=== PATIENT | female | born 1960 | race Caucasian/White ===

== ENCOUNTER 2016-05-20 11:19 | Emergency (ER) | payer MEDICAID ==
[~2016-05-20] VITALS: Ht 172.7 cm; Wt 88.5 kg
[~2016-05-20 11:19] MED LIST: ALBMDI INH; CALC-112 PO; CARI350T27 PO; EST1 PO; GABA-531 PO; IBUP-1480 PO; IMI50 PO; LEVO75TA7 PO; MOME13HF2 INH; NEU300 PO; OMEG500C3 PO; OXYB10TA4 PO; PRO40 PO; SOM350 PO; VITD2000 PO
[2016-05-20 11:38] VITALS: BP 124/97; PULSE 89; RESP 16; TEMP 97.1; O2SAT 99
--- NOTE | 2016-05-20 12:00 | NUR ---
PLACED IN BED #3 AND REPORT GIVEN TO JOHN
--- NOTE | 2016-05-20 12:40 | NUR ---
ER at bedside examining patient.
--- NOTE | 2016-05-20 12:42 | NUR ---
Visual rectal exam performed by Dr. Anna with female RN (self) at bedside during procedure. Patient tolerated well. No active bleeding. Visable external hemorrhoid noted.
--- NOTE | 2016-05-20 12:43 | NUR ---
pt was sitting on toilet,wiped out a clot from rectum this morning. has hx of hemorriod.
[2016-05-20 13:54] VITALS: BP 124/78; PULSE 76; RESP 16; O2SAT 97
--- NOTE | 2016-05-20 13:55 | NUR ---
Patient given written and verbal discharge instructions and verbalizes understanding. ER MD discussed with patient the results and treatment provided.Patient in stable condition. ID arm band removed. Patient educated on pain management and to follow up with PMD. Pain Scale [0]. Opportunity for questions provided and answered.
== END 2016-05-20 13:54 | disposition home or self-care (01) ==
LOC: SED 11:19
DX: K64.4 Residual hemorrhoidal skin tags (principal); J45.909 Unspecified asthma, uncomplicated; Z88.1 Allergy status to other antibiotic agents; Z86.79 Personal history of other diseases of the circulatory system; Z79.899 Other long term (current) drug therapy
CPT/HCPCS: 99281

== ENCOUNTER 2016-11-19 11:49 | Emergency (ER) | payer MEDICAID ==
[~2016-11-19] VITALS: Ht 170.2 cm; Wt 99.8 kg
[~2016-11-19 11:49] MED LIST changes: -CARI350T27 PO; -GABA-531 PO; -IBUP-1480 PO
[2016-11-19 12:00] VITALS: BP_SYST 151
[2016-11-19 14:33] LABS: BASOPHILS % (AUTO) 0.7 % (0.0-2.0); EOSINOPHILS # (AUTO) 0.1 K/uL (0.0-0.4); EOSINOPHILS % (AUTO) 2.1 % (0.0-4.0); HEMATOCRIT 38.3 % (36-48); HEMOGLOBIN 12.7 g/dL (12.0-16.0); LYMPHOCYTES # (AUTO) 2.1 K/uL (1.0-5.5); LYMPHOCYTES % (AUTO) 30.9 % (20.5-51.5); MEAN CORPUSCULAR HEMOGLOBIN 28 pg (27-31); MEAN CORPUSCULAR HGB CONC 33 % (32-36); MEAN CORPUSCULAR VOLUME 84 fL (79.0-98.0); MONOCYTES # (AUTO) 0.4 K/uL (0.0-1.0); MONOCYTES % (AUTO) 6.4 % (1.7-9.3); NEUTROPHILS # (AUTO) 4.1 K/uL (1.8-7.7); NEUTROPHILS % (AUTO) 59.9 % (40.0-70.0); PLATELET COUNT (AUTO) 241 K/uL (130-430); RED BLOOD CELL COUNT(AUTO) 4.57 MIL/uL (4.2-6.2); RED CELL DISTRIBUTION WIDTH 12.9 % (9.0-15.0); WHITE BLOOD COUNT (AUTO) 6.7 K/uL (4.8-10.8)
[2016-11-19 14:34] LABS: BILIRUBIN,URINE NEGATIVE (NEGATIVE); CLARITY/URINE SL HAZY (CLEAR); COLOR,URINE YELLOW (YELLOW); GLUCOSE,URINE NEGATIVE (NEGATIVE); KETONES,URINE NEGATIVE (NEGATIVE); LEUKOCYTE ESTERASE ,URINE 1+ (NEGATIVE); NITRITE, URINE POSITIVE (NEGATIVE); PH,URINE 5.5 (5.0-8.0); PROTEIN URINE NEGATIVE (NEGATIVE); UROBILINOGEN,URINE 0.2 (0.2-1.0)
[2016-11-19 14:36] LABS: BLOOD, URINE TRACE (NEGATIVE)
[2016-11-19 14:36] LABS: CALCIUM 9.2 mg/dL (8.4-11.0); CREATININE 0.97 mg/dL (0.55-1.30); POTASSIUM 4.1 mmol/L (3.5-5.1)
[2016-11-19 14:40] LABS: ALBUMIN 3.8 g/dL (3.4-4.8); INR 0.9 (0.8-1.2); PROTHROMBIN TIME 10.2 SECS (9.5-12.5); TOTAL BILIRUBIN 0.5 mg/dL (0.0-1.0); TOTAL PROTEIN, SERUM 7.7 g/dL (6.4-8.3)
[2016-11-19 14:51] LABS: BACTERIA,URINE MANY /HPF (None Seen); RBC,URINE 0-3 /HPF (0-3)
[2016-11-19 16:35] VITALS: BP_SYST 116
== END 2016-11-19 16:35 | disposition home or self-care (01) ==
LOC: SED 11:49
DX: I87.2 Venous insufficiency (chronic) (peripheral) (principal); R74.8 Abnormal levels of other serum enzymes; N39.0 Urinary tract infection, site not specified; J45.909 Unspecified asthma, uncomplicated; E07.9 Disorder of thyroid, unspecified; M19.90 Unspecified osteoarthritis, unspecified site; Z88.1 Allergy status to other antibiotic agents; Z79.899 Other long term (current) drug therapy; Z83.3 Family history of diabetes mellitus
CPT/HCPCS: 36415; 71010; 80053; 81000-TC; 85025; 85379; 85610-TC; 85730-TC; 87086; 87186-TC; 93005; 93970; 99285

== ENCOUNTER 2017-01-25 11:52 | Emergency (ER) | payer MEDICAID ==
[~2017-01-25] VITALS: Ht 172.7 cm; Wt 99.8 kg
[2017-01-25 11:52] VITALS: BP_SYST 143
[2017-01-25] MEDS ORDERED: ALBUTEROL SULFATE 0.083% 2.5 MG/3 ML VIAL.NEB INH ONE ×2 (12:15→14:25)
[2017-01-25] MEDS ORDERED: IPRATROPIUM BROM 0.5 MG/2.5 ML VIAL.NEB (ATROVENT) INH ONE ×2 (12:15→14:26)
[2017-01-25 12:28] LABS: BASOPHILS % (AUTO) 0.6 % (0.0-2.0); EOSINOPHILS # (AUTO) 0.1 K/uL (0.0-0.4); EOSINOPHILS % (AUTO) 1.3 % (0.0-4.0); HEMOGLOBIN 12.9 g/dL (12.0-16.0); LYMPHOCYTES # (AUTO) 2.3 K/uL (1.0-5.5); MEAN CORPUSCULAR HEMOGLOBIN 28 pg (27-31); MEAN CORPUSCULAR HGB CONC 33 % (32-36); MEAN CORPUSCULAR VOLUME 84 fL (79.0-98.0); MONOCYTES # (AUTO) 0.4 K/uL (0.0-1.0); MONOCYTES % (AUTO) 5.3 % (1.7-9.3); NEUTROPHILS # (AUTO) 4.1 K/uL (1.8-7.7); NEUTROPHILS % (AUTO) 59.8 % (40.0-70.0); PLATELET COUNT (AUTO) 218 K/uL (130-430); RED BLOOD CELL COUNT(AUTO) 4.62 MIL/uL (4.2-6.2); RED CELL DISTRIBUTION WIDTH 12.8 % (9.0-15.0); WHITE BLOOD COUNT (AUTO) 6.9 K/uL (4.8-10.8)
[2017-01-25 12:36] LABS: CREATININE 0.95 mg/dL (0.55-1.30); POTASSIUM 4.1 mmol/L (3.5-5.1)
[2017-01-25 12:42] LABS: ALBUMIN 3.5 g/dL (3.4-4.8); TOTAL BILIRUBIN 0.9 mg/dL (0.0-1.0)
[2017-01-25] MEDS ORDERED: MECLIZINE HCL 25 MG TABLET (ANITVERT) PO ONE (13:00)
[2017-01-25] MEDS ORDERED: DIPHENOXYLATE HCL/ATROP SULF 2.5 MG TAB PO ONE (13:00)
[2017-01-25] MEDS ORDERED: NACL 0.9% 1,000 ML IV ONE (13:15)
[2017-01-25] MEDS ORDERED: HYDROcodone/ACETAMIN 10-325 MG TAB PO ONE (15:45)
[2017-01-25 16:00] VITALS: BP_SYST 146
== END 2017-01-25 16:00 | disposition home or self-care (01) ==
LOC: SED 11:52
DX: M25.561 Pain in right knee (principal); R42 Dizziness and giddiness; R19.7 Diarrhea, unspecified; J45.909 Unspecified asthma, uncomplicated; K21.9 Gastro-esophageal reflux disease without esophagitis; E03.9 Hypothyroidism, unspecified; Z90.710 Acquired absence of both cervix and uterus; Z88.1 Allergy status to other antibiotic agents; Z79.899 Other long term (current) drug therapy; Z86.79 Personal history of other diseases of the circulatory system; W01.0XXA Fall on same level from slipping, tripping and stumbling without subsequent striking against object, initial encounter; Y93.89 Activity, other specified; Y92.89 Other specified places as the place of occurrence of the external cause; Y99.8 Other external cause status
CPT/HCPCS: 36415; 70450; 71010; 73590; 80053; 83880; 84484; 85025; 93005; 96360; 99285; J7030; J8597

== ENCOUNTER 2017-04-30 16:21 | Emergency (ER) | payer MEDICAID ==
[~2017-04-30] VITALS: Ht 172.7 cm; Wt 95.3 kg
[2017-04-30 16:25] VITALS: BP_SYST 151
[2017-04-30] MEDS: KETOROLAC TROMETHAMINE 60 MG/2 ML VIAL IM ONE (17:51)
[2017-04-30 18:04] VITALS: BP_SYST 143
== END 2017-04-30 18:08 | disposition home or self-care (01) ==
LOC: SED 16:21
DX: M25.511 Pain in right shoulder (principal); K21.9 Gastro-esophageal reflux disease without esophagitis; E03.9 Hypothyroidism, unspecified; J45.909 Unspecified asthma, uncomplicated; Z86.79 Personal history of other diseases of the circulatory system; Z88.1 Allergy status to other antibiotic agents; Z79.899 Other long term (current) drug therapy
CPT/HCPCS: 29105; 73030; 96372; 99284; J1885

== ENCOUNTER 2017-10-14 16:00 | Emergency (ER) | payer MEDICAID ==
[~2017-10-14] VITALS: Ht 172.7 cm; Wt 83.9 kg
[2017-10-14 16:11] VITALS: BP_SYST 129
[2017-10-14] MEDS ORDERED: HYDROcodone/ACETAMIN 5-325 MG TAB (NORCO/ VICODIN) PO ONE (16:30)
[2017-10-14] MEDS ORDERED: BACITRACIN 1 GM OINT TP ONE (18:15)
[2017-10-14] MEDS ORDERED: DIPH-TET-PERTUS Vaccine 0.5 ML VIAL (ADACEL) I.M. ONE ×2 (18:15→18:31)
[2017-10-14 18:37] VITALS: BP_SYST 122
== END 2017-10-14 18:35 | disposition home or self-care (01) ==
LOC: SED 16:00
DX: S60.221A Contusion of right hand, initial encounter (principal); S80.212A Abrasion, left knee, initial encounter; S90.811A Abrasion, right foot, initial encounter; S00.81XA Abrasion of other part of head, initial encounter; J45.909 Unspecified asthma, uncomplicated; K21.9 Gastro-esophageal reflux disease without esophagitis; Z86.79 Personal history of other diseases of the circulatory system; Z90.710 Acquired absence of both cervix and uterus; W01.0XXA Fall on same level from slipping, tripping and stumbling without subsequent striking against object, initial encounter; Y93.89 Activity, other specified; Y92.89 Other specified places as the place of occurrence of the external cause; Y99.8 Other external cause status
CPT/HCPCS: 70450-TC; 73560-TC; 90715; 99284

== ENCOUNTER 2018-10-02 18:39 | Inpatient (IN) | payer MEDICAID ==
[~2018-10-02] VITALS: Ht 175.3 cm; Wt 96.6 kg
[2018-10-02 18:56] VITALS: BP_SYST 121
--- NOTE | 2018-10-02 19:00 | NUR ---
Patient to ER bed 08 to gown for evaluation. Side rails up.
--- NOTE | 2018-10-02 19:18 | NUR ---
Rechecked Temp Per Rectal: 101.1
--- NOTE | 2018-10-02 19:58 | NUR ---
Dr. Acosta bedside for Pt eval
--- NOTE | 2018-10-02 20:00 | NUR ---
Pt BIB family to ED C/O fever for 2 days. Pt reports on September 23, having her first Chemo treatment. Pt also reports at home having a oral temp of "107F." She has been taking Tylenol with minimal relief. Pt stated today having episodes of watery, nonbloody diarrhea and a dry cough. Appetite decreased. Pt also states being on antinausea medications. Pt with Hx of Stage 1 Breast Cancer, currently on Chemo. No other injuries and or complaints noted. VSS, no s/s of acute distress. Resting on gurney with rails up
[2018-10-02] MEDS ORDERED: NACL 0.9% 1,000 ML IV ONE (20:15)
[2018-10-02 20:45] LABS: BILIRUBIN,URINE NEGATIVE (NEGATIVE); BLOOD, URINE NEGATIVE (NEGATIVE); CLARITY/URINE SL HAZY (CLEAR); COLOR,URINE YELLOW (YELLOW); GLUCOSE,URINE NEGATIVE (NEGATIVE); KETONES,URINE NEGATIVE (NEGATIVE); LEUKOCYTE ESTERASE ,URINE TRACE (NEGATIVE); NITRITE, URINE NEGATIVE (NEGATIVE); PH,URINE 5.5 (5.0-8.0); PROTEIN URINE TRACE (NEGATIVE); UROBILINOGEN,URINE 0.2 (0.2-1.0)
[2018-10-02 21:12] LABS: HEMOGLOBIN 9.8 g/dL (12.0-16.0); PLATELET COUNT (AUTO) 172 K/uL (130-430)
[2018-10-02 21:22] LABS: HEMATOCRIT 29.5 % (36-48); MEAN CORPUSCULAR HEMOGLOBIN 26 pg (27-31); MEAN CORPUSCULAR HGB CONC 33 % (32-36); MEAN CORPUSCULAR VOLUME 79 fL (79.0-98.0); RED BLOOD CELL COUNT(AUTO) 3.75 MIL/uL (4.2-6.2); RED CELL DISTRIBUTION WIDTH 14.6 % (9.0-15.0)
[2018-10-02] MEDS ORDERED: LEVOFLOXACIN 500 MG/D5W 100 ML IV ONE (21:30)
[2018-10-02 21:39] LABS: WHITE BLOOD COUNT (AUTO) 1.5 K/uL (4.8-10.8)
[2018-10-02 21:54] LABS: BACTERIA,URINE FEW /HPF (None Seen); RBC,URINE NONE SEEN /HPF (0-3)
[2018-10-02 21:55] LABS: MUCUS,URINE None Seen /LPF (None Seen)
[2018-10-02 21:56] LABS: CALCIUM 8.9 mg/dL (8.4-11.0); CREATININE 0.95 mg/dL (0.55-1.30); POTASSIUM 3.5 mmol/L (3.5-5.1)
[2018-10-02 22:07] LABS: ALBUMIN 2.8 g/dL (3.4-4.8); TOTAL BILIRUBIN 0.2 mg/dL (0.0-1.0)
--- NOTE | 2018-10-02 22:10 | NUR ---
Pt tolerating IV Antibiotx well. Self help to and from Restroom, in stable gait and overall condition
[2018-10-02 22:37] LABS: INR 0.9 (0.8-1.2); PROTHROMBIN TIME 9.1 SECS (9.5-12.5)
--- NOTE | 2018-10-02 23:00 | NUR ---
Pt remains in precautionary reverse iso for possible neutropenia. VSS, no s/s of acute distress. IV med well tolerated
[2018-10-02] MEDS ORDERED: ONDANSETRON HCL 4 MG/2 ML VIAL IVP PRN (23:15)
[2018-10-02] MEDS ORDERED: ACETAMINOPHEN 325 MG TABLET PO PRN (23:15)
[2018-10-02 23:35] LABS: BAND % (MANUAL) 0 % (0-6)
[2018-10-02 23:36] LABS: ATYPICAL LYMPHOCYTES % 4 % (0-0); BASOPHILS % (MANUAL) 0 % (0-2); EOSINOPHILS % (MANUAL) 2 % (0-7); LYMPHOCYTES % (MANUAL) 81 % (20-46); MONOCYTES % (MANUAL) 12 % (0-11)
[2018-10-02] MEDS ORDERED: cefTRIAXone 1 GM IVPB PREMIX 50 ML IV ONE (23:56)
[2018-10-02] MEDS ORDERED: BACL10TA PO (23:58)
[2018-10-02] MEDS ORDERED: LORA10TA7 PO (23:58)
[2018-10-02] MEDS ORDERED: OXYC-128 PO (23:58)
[2018-10-02] MEDS ORDERED: CYAN100010 PO (23:58)
[2018-10-02] MEDS ORDERED: OMEP20CA10 PO (23:58)
[2018-10-02] MEDS ORDERED: ONDA4TAB5 PO (23:58)
[2018-10-02] MEDS ORDERED: PROC-14 PO (23:58)
[2018-10-02] MEDS ORDERED: AMLO5TAB4 PO (23:58)
[2018-10-02] MEDS ORDERED: AMOX-423 PO (23:58)
[2018-10-02] MEDS ORDERED: CYM30 PO (23:58)
[2018-10-02] MEDS ORDERED: [UNRECOGNIZED DRUG - CODE] IV (23:58)
[2018-10-02] MEDS ORDERED: CARB150V9 IV (23:58)
[2018-10-02] MEDS ORDERED: TRAS150V IV (23:58)
[2018-10-03] MEDS ORDERED: AMOX-423 PO (00:01)
[2018-10-03] MEDS ORDERED: OXYCODONE/ACETAMINOPHEN 5-325 TABLET PO PRN (00:15)
[2018-10-03] MEDS ORDERED: ONDANSETRON 4 MG ODT TAB PO PRN (00:15)
--- NOTE | 2018-10-03 00:25 | NUR ---
Patient will be admitted to care of Dr. Mike. Admitted to Telemetry unit. Will go to room 107A. Belongings list completed. Summary report printed. Report will be given at bedside.
--- NOTE | 2018-10-03 00:25 | NUR ---
Transfer to Telemetry via ACLS protocol. Licensed nurse present. IV present no signs or symptoms of infiltration.
--- NOTE | 2018-10-03 00:25 | NUR ---
ADMISSION NOTE Received patient from ER via pat, received report from Carlos Reyes RN. Patient admitted with diagnosis of Pylonephritis. Patient oriented to hospital routine, call light, toileting and safety-patient verbalized understanding.
--- NOTE | 2018-10-03 00:26 | NUR ---
REVERSE ISOLATION : PLEASE WEAR MASK BEFORE ENTERING ROOM
[2018-10-03 00:39] VITALS: BP_SYST 129
[2018-10-03] MEDS ORDERED: ALBUTEROL SULFATE 0.083% 2.5 MG/3 ML VIAL.NEB INH PRN (01:45)
[2018-10-03] MEDS ORDERED: cefTRIAXone 1 GM in D5W 50 ML IV SCH ×2 (02:00→21:00)
[2018-10-03 02:06] VITALS: BP_SYST 129
[2018-10-03] MEDS: NACL 0.9% 1,000 ML IV SCH ×4 (02:12→21:08)
--- NOTE | 2018-10-03 02:25 | NUR ---
Patient had a bowel movement (Diarrhea, brown, loose) and voided urine.
--- NOTE | 2018-10-03 04:24 | NUR ---
Patient asleep in bed. No appearance of pain or respiratory distress. Call light within reach. Will cont to monitor.
[2018-10-03] MEDS: LEVOTHYROXINE SODIUM 0.075 MG TABLET PO SCH (06:24)
--- NOTE | 2018-10-03 07:01 | NUR ---
Closing Notes Patient resting with no pain or respiratory distress. IV site clean dry and intact with no s/s of infiltration or infection. Bed low and locked. Safety precautions in place. All needs have been met and will endorse care to oncoming shift.
--- NOTE | 2018-10-03 07:05 | NUR ---
Opening Note: Patient in bed resting. Patient denies pain and discomfort. Breathing is even and unlabored on room air. IV patent and intact running IVF per MD orders. No signs of infiltration noted. Reverse Isolation in place. Safety precautions in place; bed in lowest position, wheels locked, side rails x3 and call light within reach. No needs at this time. Will continue to monitor. Addendum: 10/03/18 at 1836 by Kae Rodriguez RN Correction: Zaira cath patent and intact running IVF per MD orders
[2018-10-03 08:06] VITALS: BP_SYST 119
[2018-10-03] MEDS: FAMOTIDINE 20 MG TABLET PO SCH ×2 (08:16→20:53)
[2018-10-03] MEDS: LORATADINE 10 MG TABLET PO SCH (08:17)
[2018-10-03] MEDS: DULoxetine HCL 30 MG CAPSULE.DR (CYMBALTA) PO SCH (08:18)
[2018-10-03] MEDS: CYANOCOBALAMIN 1000 mCg TABLET PO SCH (08:18)
[2018-10-03] MEDS: PROCHLORPERAZINE MALEATE 10 MG TABLET PO SCH (08:18)
[2018-10-03] MEDS: OMEPRAZOLE 20 MG CAPSULE.DR (PriLOSEC) PO SCH (08:18)
[2018-10-03] MEDS: amLODIPine BESYLATE 5 MG TABLET PO SCH (08:18)
[2018-10-03] MEDS ORDERED: AMOXICILLIN/CLAVULANATE POTASSIUM 500 MG TABLET PO SCH (09:00)
[2018-10-03 09:32] LABS: BASOPHILS % (AUTO) 1.5 % (0.0-2.0); EOSINOPHILS % (AUTO) 0.6 % (0.0-4.0); HEMATOCRIT 29.3 % (36-48); HEMOGLOBIN 9.5 g/dL (12.0-16.0); LYMPHOCYTES # (AUTO) 0.9 K/uL (1.0-5.5); MEAN CORPUSCULAR HEMOGLOBIN 26 pg (27-31); MEAN CORPUSCULAR HGB CONC 32 % (32-36); MEAN CORPUSCULAR VOLUME 80 fL (79.0-98.0); MONOCYTES # (AUTO) 0.3 K/uL (0.0-1.0); MONOCYTES % (AUTO) 24.5 % (1.7-9.3); NEUTROPHILS % (AUTO) 3.9 % (40.0-70.0); PLATELET COUNT (AUTO) 171 K/uL (130-430); RED BLOOD CELL COUNT(AUTO) 3.66 MIL/uL (4.2-6.2); RED CELL DISTRIBUTION WIDTH 15.4 % (9.0-15.0)
[2018-10-03 09:44] LABS: CALCIUM 8.9 mg/dL (8.4-11.0); CREATININE 0.92 mg/dL (0.55-1.30); POTASSIUM 4.5 mmol/L (3.5-5.1)
[2018-10-03 09:50] LABS: ALBUMIN 2.5 g/dL (3.4-4.8); TOTAL BILIRUBIN 0.2 mg/dL (0.0-1.0)
[2018-10-03 10:11] LABS: WHITE BLOOD COUNT (AUTO) 1.3 K/uL (4.8-10.8)
[2018-10-03 10:12] LABS: LYMPHOCYTES % (AUTO) 69.5 % (20.5-51.5)
--- NOTE | 2018-10-03 10:12 | NUR ---
CONSULTATION PAGED/CALLED Reason for Consultation: NEUTROPENIA Person Who was Notified: SPOKE WITH RICH FROM [facility] . Consulting Physician: Refund Clerk Specialty: HEMATOLOGY/ONCOLOGY Ordering Physician:
--- NOTE | 2018-10-03 10:38 | NUR ---
CONSULTATION PAGED/CALLED Reason for Consultation: NEUTROPENIA/BREAST CA Person Who was Notified: GREY MATOS Consulting Physician: ELVIRA MATOS IS SCULPTURE CONSERVATOR FOR [employer] Technician Specialty: ONCO Ordering Physician: DR.REDDY JOY CAME ON THE LINE PHONE WAS TRANSFERRED TO NURSE
--- NOTE | 2018-10-03 10:40 | NUR ---
Spoke to Dr. Benitez: Spoke to Dr. Benitez, salesperson pianos and organs for Dr. Rivers. Per Dr. Benitez, they do not cover patient's who are [facility] with Dr. Morris. Will inform Dr. Mike. Addendum: 10/03/18 at 1330 by Kae Rodriguez RN Dr. Mike made aware, per Dr. Mike "No need for an oncology consult."
[2018-10-03 11:30] VITALS: BP_SYST 123
--- NOTE | 2018-10-03 11:59 | NUR ---
Rounds: Patient in bed resting. Patient denies pain and discomfort. Breathing is even ad unlabored with no distress noted. Morning medications tolerated well. Reverse isolation in place. Safety precautions in place and call light within reach. No needs at this time. Will continue to monitor.
--- NOTE | 2018-10-03 12:23 | NUR ---
Paging Dr. Mike: Paging Dr. Mike, patient complaining of sore throat. Awaiting callback and orders.
--- NOTE | 2018-10-03 12:39 | NUR ---
CONSULTATION PAGED/CALLED Reason for Consultation: NEUTROPENIA/BREAST CA Person Who was Notified: SPOKE WITH RAQUAL FROM [employer] Consulting Physician: DR JIANG Manager Gallery Specialty: ID Ordering Physician:
[2018-10-03] MEDS ORDERED: VANCOMYCIN HCL 125 MG CAPSULE PO SCH (13:00)
--- NOTE | 2018-10-03 13:15 | NUR ---
Patient ambulating: Patient ambulating, using IV pole for assistance. Steady gait.
--- NOTE | 2018-10-03 13:25 | NUR ---
Paging Dr. Mike x2: Paging Dr. Mike x2, awaiting callback.
--- NOTE | 2018-10-03 13:33 | NUR ---
Called pharmacy/Vancomycin: Called pharmacy regarding vancomycin, per pharmacy we will mix it and bring it.
[2018-10-03] MEDS: BENZOCAINE/MENTHOL 1 EACH LOZENGE MM PRN (13:38)
--- NOTE | 2018-10-03 14:10 | NUR ---
Called pharmacy/Vancomycin x2: Waiting on pharmacy to mix and bring medication, spoke to Ruben.
[2018-10-03] MEDS: VANCOMYCIN HCL ORAL SOLUTION 250 MG/5 ML, 80 ML PO SCH ×3 (14:25→20:54)
[2018-10-03 15:28] VITALS: BP_SYST 121
--- NOTE | 2018-10-03 16:05 | NUR ---
Rounds: Patient in bed resting. Patient denies pain and discomfort. Patient denies soreness in throat. Breathing is even and unlabored with no distress noted. Safety precautions in place and call light within reach. No needs at this time. Will continue to monitor.
[2018-10-03] MEDS: FILGRASTIM Non-Formulary 0.48 MG/VIAL SUBCUT SCH (17:54)
--- NOTE | 2018-10-03 18:34 | NUR ---
Closing Note: Patient in bed resting. Patient denies pain and discomfort. Breathing is even and unlabored on room air. Azira cath patent and intact running IVF per MD orders. Dressing clean, dry and intact. Reverse Isolation in place. SCD's in place. Safety precautions in place; bed in lowest position, wheels locked, side rails x3 and call light within reach. All needs met. Will endorse plan of care to NOC, nurse.
--- NOTE | 2018-10-03 19:15 | NUR ---
Opening notes Patient resting in bed. No signs of distress noted. Breathing is even and unlabored. Left chest portacath noted and infusing fluids. Patient ambulatory with minimal assist. Patient refuses bed alarm. Educated fall precautions. Patient verbalized understanding. Call light with the patient. Reverse isolation and safety precautions in place.
[2018-10-03 20:00] VITALS: BP_SYST 111
[2018-10-03] MEDS: BACLOFEN 10 MG TABLET PO SCH (20:53)
[2018-10-03] MEDS: GABAPENTIN 300 MG CAPSULE PO SCH (20:53)
[2018-10-03] MEDS: CEFEPIME 1 GM in D5W 50 ML IV SCH (20:53)
--- NOTE | 2018-10-03 21:00 | NUR ---
Medications given. Educated the action and side effects of medications. Patient verbalized understanding and tolerated well. No signs of allergic reaction noted. No other needs at this time. Safety precautions in place.
[2018-10-03] MEDS: metroNIDAZOLE 250 mg/NS 50 ML IV SCH (22:00)
[2018-10-03] MEDS ORDERED: metroNIDAZOLE 500 mg/NS 200 ML IV ONE (22:23)
--- NOTE | 2018-10-03 22:30 | NUR ---
Flagyl Only Flagyl 500 mg bags available at this time. Removed 250 mg (50 ml) from bag and administered. Educated the action and side effect. Patient verbalized understanding and tolerated well. No signs of allergic reaction. Provided patient with toothbrush, toothpaste and mouthwash per patient request. No other needs. Call light with the patient. Safety precautions in place.
--- NOTE | 2018-10-04 00:30 | NUR ---
Sleeping No signs of distress noted. Breathing even and unlabored. IVF infusing well. Call light with the patient. Safety precautions in place.
[2018-10-04 00:44] VITALS: BP_SYST 127
--- NOTE | 2018-10-04 03:39 | NUR ---
Resting Patient ambulated to bathroom and had brownish-green liquid stool. Patient back in bed, resting comfortably. No needs at this time. Call light with the patient. Safety precautions in place.
[2018-10-04] MEDS: metroNIDAZOLE 250 mg/NS 50 ML IV SCH ×3 (05:19→22:08)
--- NOTE | 2018-10-04 05:53 | NUR ---
Resting Patient resting comfortably in bed. No signs of distress noted. Breathing even and unlabored. Safety precautions in place.
[2018-10-04] MEDS: LEVOTHYROXINE SODIUM 0.075 MG TABLET PO SCH (06:02)
--- NOTE | 2018-10-04 06:44 | NUR ---
Closing notes Patient is resting in bed, watching TV. No signs of distress noted. Breathing is even and unlabored. IV patent and intact, infusing fluids. All needs met throughout the shift. Call light with the patient. Safety precautions in place. Will endorse care to day shift RN.
--- NOTE | 2018-10-04 07:50 | NUR ---
INITIAL NOTE RECEIVED PT IN BED, NO S/S OF DISTRESS OR SOB NOTED, PT HAS NO C/O PAIN AT THIS TIME, PT IN STABLE CONDITION, PT AAOX4, VERBAL. BED AT LOWEST POSITION, CALL LIGHT WITHIN REACH, WILL CONTINUE TO MONITOR PT FOR ANY CHANGES, FALL AND SAFETY PRECAUTIONS IN PLACE. PT ON REVERSE ISOLATION. PT HAS BILATERAL SCD'S IN PLACE. PT HAS A LEFT CHEST PORT-A-CATH ACCESSED, NO SIGNS OF INFECTION NOTED, RUNNING IV FLUIDS ORDERED.
[2018-10-04 08:30] VITALS: BP_SYST 119
[2018-10-04] MEDS: CEFEPIME 1 GM in D5W 50 ML IV SCH ×2 (08:55→22:08)
[2018-10-04] MEDS: DULoxetine HCL 30 MG CAPSULE.DR (CYMBALTA) PO SCH (08:56)
[2018-10-04] MEDS: FAMOTIDINE 20 MG TABLET PO SCH ×2 (08:56→22:09)
[2018-10-04] MEDS: VANCOMYCIN HCL ORAL SOLUTION 250 MG/5 ML, 80 ML PO SCH ×4 (08:56→21:00)
[2018-10-04] MEDS: LORATADINE 10 MG TABLET PO SCH (08:56)
[2018-10-04] MEDS: CYANOCOBALAMIN 1000 mCg TABLET PO SCH (08:56)
[2018-10-04] MEDS: amLODIPine BESYLATE 5 MG TABLET PO SCH (08:57)
[2018-10-04] MEDS: OMEPRAZOLE 20 MG CAPSULE.DR (PriLOSEC) PO SCH (08:57)
[2018-10-04] MEDS: PROCHLORPERAZINE MALEATE 10 MG TABLET PO SCH (09:05)
[2018-10-04] MEDS: NACL 0.9% 1,000 ML IV SCH ×2 (09:05→22:08)
[2018-10-04 09:06] LABS: HEMATOCRIT 28.4 % (36-48); HEMOGLOBIN 9.3 g/dL (12.0-16.0); MEAN CORPUSCULAR HEMOGLOBIN 26 pg (27-31); MEAN CORPUSCULAR HGB CONC 33 % (32-36); MEAN CORPUSCULAR VOLUME 79 fL (79.0-98.0); PLATELET COUNT (AUTO) 166 K/uL (130-430); RED BLOOD CELL COUNT(AUTO) 3.58 MIL/uL (4.2-6.2); RED CELL DISTRIBUTION WIDTH 15.3 % (9.0-15.0); WHITE BLOOD COUNT (AUTO) 4.2 K/uL (4.8-10.8)
[2018-10-04 09:16] LABS: CALCIUM 8.6 mg/dL (8.4-11.0); CREATININE 1.03 mg/dL (0.55-1.30); POTASSIUM 3.7 mmol/L (3.5-5.1)
[2018-10-04 09:22] LABS: ALBUMIN 2.4 g/dL (3.4-4.8); TOTAL BILIRUBIN 0.4 mg/dL (0.0-1.0)
--- NOTE | 2018-10-04 09:36 | NUR ---
MD ROUNDS DR EYAD FRANCO, AWARE OF PATIENT'S CONDITION.
--- NOTE | 2018-10-04 10:17 | NUR ---
ROUNDS PT IN BED, NO S/S OF DISTRESS OR SOB NOTED, PT HAS NO C/O PAIN AT THIS TIME, PT IN STABLE CONDITION, PT RESTING COMFORTABLY, WILL CONTINUE TO MONITOR PT FOR ANY CHANGES.
[2018-10-04 10:29] LABS: ATYPICAL LYMPHOCYTES % 5 % (0-0); BAND % (MANUAL) 18 % (0-6); BASOPHILS % (MANUAL) 0 % (0-2); EOSINOPHILS % (MANUAL) 0 % (0-7); LYMPHOCYTES % (MANUAL) 33 % (20-46); MONOCYTES % (MANUAL) 16 % (0-11)
[2018-10-04] MEDS: BENZOCAINE/MENTHOL 1 EACH LOZENGE MM PRN (10:37)
[2018-10-04 14:02] VITALS: BP_SYST 106
--- NOTE | 2018-10-04 14:04 | NUR ---
ROUNDS PT IN BED, NO S/S OF DISTRESS OR SOB NOTED, PT HAS NO C/O PAIN AT THIS TIME, PT IN STABLE CONDITION, PT RESTING COMFORTABLY, WILL CONTINUE TO MONITOR PT FOR ANY CHANGES. PT WATCHING TV.
[2018-10-04 16:52] VITALS: BP_SYST 110
[2018-10-04] MEDS: FILGRASTIM Non-Formulary 0.48 MG/VIAL SUBCUT SCH (17:35)
--- NOTE | 2018-10-04 18:09 | NUR ---
CLOSING NOTE PT IN BED, NO S/S OF DISTRESS OR SOB NOTED, PT HAS NO C/O PAIN AT THIS TIME, PT IN STABLE CONDITION, PT AAOX4, VERBAL. BED AT LOWEST POSITION, CALL LIGHT WITHIN REACH, WILL ENDORSE CARE OF PT TO INCOMING SHIFT, FALL AND SAFETY PRECAUTIONS IN PLACE. PT ON REVERSE ISOLATION. PT HAS BILATERAL SCD'S IN PLACE. PT HAS A LEFT CHEST PORT-A-CATH ACCESSED, NO SIGNS OF INFECTION NOTED, RUNNING IV FLUIDS ORDERED. NEEDS MET THROUGHOUT SHIFT.
--- NOTE | 2018-10-04 19:10 | NUR ---
Opening notes Patient resting in bed watching TV. No signs of distress noted. Breathing even and unlabored. Portacath in place infusing fluids. Bilateral SCDs in place. No needs at this time. Call light with the patient.
[2018-10-04 20:00] VITALS: BP_SYST 113
--- NOTE | 2018-10-04 20:30 | NUR ---
Ambulating hallways steady gait noted. No signs of distress noted.
[2018-10-04] MEDS: GABAPENTIN 300 MG CAPSULE PO SCH (22:09)
[2018-10-04] MEDS: BACLOFEN 10 MG TABLET PO SCH (22:09)
--- NOTE | 2018-10-04 22:15 | NUR ---
Medications given. Educated the action and side effects of medications. Patient verbalized understanding and tolerated well. No signs of allergic reaction noted. No other needs at this time. Call light with the patient, safety precautions in place.
--- NOTE | 2018-10-05 00:30 | NUR ---
Sleeping No signs of distress noted. Breathing even and unlabored. Fluids infusing well. Call light with the patient. Safety precautions in place.
[2018-10-05 00:32] VITALS: BP_SYST 115
--- NOTE | 2018-10-05 02:21 | NUR ---
Patient continues to sleep No signs of distress noted. breathing even and unlabored. Call light with the patient. Safety precautions in place.
--- NOTE | 2018-10-05 04:30 | NUR ---
Sleeping No signs of distress noted. Breathing even and unlabored. Safety precautions in place.
[2018-10-05] MEDS: metroNIDAZOLE 250 mg/NS 50 ML IV SCH ×3 (06:13→21:25)
[2018-10-05] MEDS: LEVOTHYROXINE SODIUM 0.075 MG TABLET PO SCH (06:13)
--- NOTE | 2018-10-05 06:33 | NUR ---
Closing notes Patient resting in bed, watching TV. No signs of distress noted. Breathing even and unlabored. IV patent and intact, infusing antibiotics. Bilateral SCDs in place. All needs met throughout the shift. Call light with the patient. Safety precautions in place. Will endorse care to day shift RN.
[2018-10-05 07:03] LABS: BASOPHILS # (AUTO) 0.1 K/uL (0.0-0.2); BASOPHILS % (AUTO) 0.4 % (0.0-2.0); EOSINOPHILS % (AUTO) 0.1 % (0.0-4.0); HEMATOCRIT 28.5 % (36-48); HEMOGLOBIN 9.3 g/dL (12.0-16.0); LYMPHOCYTES # (AUTO) 2.2 K/uL (1.0-5.5); LYMPHOCYTES % (AUTO) 15.1 % (20.5-51.5); MEAN CORPUSCULAR HEMOGLOBIN 26 pg (27-31); MEAN CORPUSCULAR HGB CONC 33 % (32-36); MEAN CORPUSCULAR VOLUME 79 fL (79.0-98.0); MONOCYTES # (AUTO) 1.1 K/uL (0.0-1.0); MONOCYTES % (AUTO) 7.7 % (1.7-9.3); NEUTROPHILS % (AUTO) 76.7 % (40.0-70.0); PLATELET COUNT (AUTO) 165 K/uL (130-430); RED BLOOD CELL COUNT(AUTO) 3.64 MIL/uL (4.2-6.2); RED CELL DISTRIBUTION WIDTH 15.5 % (9.0-15.0)
[2018-10-05 07:04] LABS: CALCIUM 8.8 mg/dL (8.4-11.0); CREATININE 0.98 mg/dL (0.55-1.30); POTASSIUM 3.8 mmol/L (3.5-5.1)
[2018-10-05 07:16] LABS: ALBUMIN 2.4 g/dL (3.4-4.8); TOTAL BILIRUBIN 0.4 mg/dL (0.0-1.0)
--- NOTE | 2018-10-05 07:38 | NUR ---
OPENING NOTE: RECEIVED REPORT FROM NIGHT NURSE. PATIENT IS RESTING COMFORTABLY IN BED. NO S/S OF DISTRESS OR SOB. PATIENT IS SLEEPING. PATIENT ON ROOM AIR. PATIENT WITH SCD'S IN PLACE. PATIENT ON REVERSE ISOLATION. CALL LIGHT IN REACH, BED IN LOWEST POSITION, AND WILL CONTINUE TO MONITOR.
[2018-10-05 08:02] VITALS: BP_SYST 124
[2018-10-05] MEDS: DULoxetine HCL 30 MG CAPSULE.DR (CYMBALTA) PO SCH (09:00)
[2018-10-05] MEDS: amLODIPine BESYLATE 5 MG TABLET PO SCH (09:00)
[2018-10-05] MEDS: LORATADINE 10 MG TABLET PO SCH (09:01)
[2018-10-05] MEDS: PROCHLORPERAZINE MALEATE 10 MG TABLET PO SCH (09:01)
[2018-10-05] MEDS: CYANOCOBALAMIN 1000 mCg TABLET PO SCH (09:01)
[2018-10-05] MEDS: CEFEPIME 1 GM in D5W 50 ML IV SCH ×2 (09:01→20:10)
[2018-10-05] MEDS: OMEPRAZOLE 20 MG CAPSULE.DR (PriLOSEC) PO SCH (09:01)
[2018-10-05] MEDS: FAMOTIDINE 20 MG TABLET PO SCH ×2 (09:01→20:09)
[2018-10-05] MEDS ORDERED: IPRATROPIUM BROM 0.5 MG/2.5 ML VIAL.NEB (ATROVENT) INH PRN (09:15)
[2018-10-05] MEDS ORDERED: ALBUTEROL SULFATE 0.083% 2.5 MG/3 ML VIAL.NEB INH PRN (09:15)
[2018-10-05 09:35] LABS: WHITE BLOOD COUNT (AUTO) 14.3 K/uL (4.8-10.8)
[2018-10-05 11:37] VITALS: BP_SYST 118
--- NOTE | 2018-10-05 12:00 | NUR ---
RN ROUNDS PATIENT IS RESTING COMFORTABLY IN BED. NO S/S OF DISTRESS OR SOB. PATIENT IS ALERT AND ORIENTED. PATIENT REQUESTED BREATHING TREATMENT, HAD SOME SOB WHEN AMBULATING TO THE BATHROOM EARLIER. NO OTHER NEEDS AT THE MOMENT. CALL LIGHT IN REACH, BED IN LOWEST POSITION, AND WILL CONTINUE TO MONITOR.
[2018-10-05] MEDS: ALBUTEROL SULFATE 0.083% 2.5 MG/3 ML VIAL.NEB INH SCH ×4 (12:01→23:15)
[2018-10-05] MEDS: IPRATROPIUM BROM 0.5 MG/2.5 ML VIAL.NEB (ATROVENT) INH SCH ×4 (12:02→23:15)
--- NOTE | 2018-10-05 13:30 | NUR ---
DC Planning: Addendum: 10/05/18 at 1334 by Brody Clemens RN DC Planning: Updated and faxed today's MD progress notes to teddy Drake at [facility], fax # [phone], tel [phone].
[2018-10-05] MEDS: NACL 0.9% 1,000 ML IV SCH (15:17)
[2018-10-05] MEDS: BENZOCAINE/MENTHOL 1 EACH LOZENGE MM PRN (15:20)
[2018-10-05 15:34] VITALS: BP_SYST 125
[2018-10-05] MEDS: FILGRASTIM Non-Formulary 0.48 MG/VIAL SUBCUT SCH (17:19)
--- NOTE | 2018-10-05 18:20 | NUR ---
CLOSING NOTE: PATIENT IS RESTING COMFORTABLY IN BED. NO S/S OF DISTRESS OR SOB. PATIENT IS AWAKE AND ALERT. NO S/S OF DISTRESS OR SOB. IV IS PATENT AND INFUSING. ALL NEEDS MET DURING SHIFT. CALL LIGHT IN REACH, BED IN LOWEST POSITION, AND WILL GIVE REPORT TO NIGHT NURSE.
--- NOTE | 2018-10-05 19:17 | NUR ---
Start of shift Assessment Received patient resting in bed watching tv. Patient is bed awake alert oriented x 4. No s/s of any respi distress noted. MARY portacath noted. Discussed plan of care with patient and verbalized understanding. All extremities are strong, ambulatory. Call light in reach, will cont to monitor.
[2018-10-05 19:18] VITALS: BP_SYST 128
--- NOTE | 2018-10-05 19:20 | NUR ---
Start of shift Assessment Received patient resting in bed awake alert oriented x 4 with family at bedside. No s/s of any distress noted. IV noted L f/a g 22 no infiltrate and with good blood return. Discussed plan of care with patient and verbalized understanding. All extremities are strong, ambulatory. Call light in reach, will cont to monitor. Addendum: 10/05/18 at 1937 by Shaji Lainez RN Correction wrong patient
[2018-10-05] MEDS: GABAPENTIN 300 MG CAPSULE PO SCH (20:09)
[2018-10-05] MEDS: BACLOFEN 10 MG TABLET PO SCH (20:10)
--- NOTE | 2018-10-05 22:55 | NUR ---
Ambulate to hallway Ambulate with Catrachtia [place]AY to Hallway and safely back to bed. Patient was hooked up to portable oxygen via n/c at 3L.
[2018-10-06] MEDS: NACL 0.9% 1,000 ML IV SCH (00:19)
[2018-10-06 00:52] VITALS: BP_SYST 122
[2018-10-06] MEDS: ALBUTEROL SULFATE 0.083% 2.5 MG/3 ML VIAL.NEB INH SCH ×2 (03:00→07:04)
[2018-10-06] MEDS: IPRATROPIUM BROM 0.5 MG/2.5 ML VIAL.NEB (ATROVENT) INH SCH ×2 (03:00→07:04)
[2018-10-06] MEDS: metroNIDAZOLE 250 mg/NS 50 ML IV SCH (06:05)
[2018-10-06] MEDS: LEVOTHYROXINE SODIUM 0.075 MG TABLET PO SCH (06:05)
--- NOTE | 2018-10-06 06:48 | NUR ---
End of shift Notes Patient is awake resting in bed at this time. No respi distress noted. All needs met and anticipated by staff. Call light in reach, bed alarm on and side rails up x2 for safety. Will endorse care to incoming nurse.
--- NOTE | 2018-10-06 07:53 | NUR ---
Opening Note Report received from Shaji BELTRAN shift nurse. Patient is currently awake and sitting in bed. Patient currently is afebrile and is not complaining of any pain. Right chest port-a-cath is in place running NS@100. O2 is at 2l via NC. Patient is alert and oriented. Patient has current breast ca w/ erin breast mastectomy and right breast lumpectomy. Call light is within reach and bed is in the lowest position. Will continue to monitor.
[2018-10-06 08:00] VITALS: BP_SYST 122
[2018-10-06] MEDS: LORATADINE 10 MG TABLET PO SCH (09:16)
[2018-10-06] MEDS: PROCHLORPERAZINE MALEATE 10 MG TABLET PO SCH (09:16)
[2018-10-06] MEDS: DULoxetine HCL 30 MG CAPSULE.DR (CYMBALTA) PO SCH (09:16)
[2018-10-06] MEDS: OMEPRAZOLE 20 MG CAPSULE.DR (PriLOSEC) PO SCH (09:16)
[2018-10-06] MEDS: CYANOCOBALAMIN 1000 mCg TABLET PO SCH (09:16)
[2018-10-06] MEDS: FAMOTIDINE 20 MG TABLET PO SCH (09:16)
[2018-10-06] MEDS: CEFEPIME 1 GM in D5W 50 ML IV SCH (09:23)
[2018-10-06] MEDS: amLODIPine BESYLATE 5 MG TABLET PO SCH (09:23)
--- NOTE | 2018-10-06 10:10 | NUR ---
Rounds All meds given. Patient tolerated well.
[2018-10-06 10:30] VITALS: BP_SYST 122
[2018-10-06] MEDS ORDERED: LEVO750T45 PO (10:36)
[2018-10-06] MEDS ORDERED: METR500T PO (10:37)
--- NOTE | 2018-10-06 11:00 | NUR ---
Transition of Care Note Patient given medication reconciliation form and D/C instructions. Exit Care provided. Patient verbalized understanding. MD discussed with patient the results and treatment provided. Ambulatory with steady gait for discharge to home. Patient in stable condition, ID band removed. IV catheter removed, intact and dressing applied, no active bleeding. Rx of Levaquin and Flagyl given. Patient educated on pain management. All belongings sent with patient.
== END 2018-10-06 11:10 | disposition home or self-care (01) | DRG 720 ==
LOC: SED 18:39 → STU 23:15 → SMU 10-04 12:00
PROVIDERS: ADMIT Internal Medicine; ATTEND Internal Medicine
DX: A41.89 Other specified sepsis (principal); E43 Unspecified severe protein-calorie malnutrition; C50.919 Malignant neoplasm of unspecified site of unspecified female breast; D70.3 Neutropenia due to infection; E03.9 Hypothyroidism, unspecified; I10 Essential (primary) hypertension; N39.0 Urinary tract infection, site not specified; J45.909 Unspecified asthma, uncomplicated; K21.9 Gastro-esophageal reflux disease without esophagitis; M19.90 Unspecified osteoarthritis, unspecified site; F32.9 Major depressive disorder, single episode, unspecified; K52.9 Noninfective gastroenteritis and colitis, unspecified; Z92.21 Personal history of antineoplastic chemotherapy; Z88.1 Allergy status to other antibiotic agents; Z79.899 Other long term (current) drug therapy; Z90.13 Acquired absence of bilateral breasts and nipples
CPT/HCPCS: 36415; 71045; 80053; 81000-TC; 83605; 84484; 85007; 85025; 85027; 85610-TC; 85730-TC; 87040-TC; 87086; 87230-TC; 93005; 94640; 94760; 96365; 99285; G0378; J0692; J0696; J1442; J1956; J3370; J3490; J7030; J7060; J7613; Q0164

== ENCOUNTER 2020-01-13 13:00 | Emergency (ER) | payer MEDICAID ==
[~2020-01-13] VITALS: Ht 172.7 cm; Wt 93.4 kg
[~2020-01-13 13:00] MED LIST changes: +AMLO5TAB4 PO; +BACL10TA PO; -CALC-112 PO; +CARB150V9 IV; +CYAN100010 PO; +CYM30 PO; -EST1 PO; -IMI50 PO; +LEVO750T45 PO; +LORA10TA7 PO; +METR500T PO; -MOME13HF2 INH; -OMEG500C3 PO; +OMEP20CA11 PO; +ONDA4TAB5 PO; -OXYB10TA4 PO; +OXYC-128 PO; -PRO40 PO; +PROC-14 PO; -SOM350 PO; +TRAS150V IV; -VITD2000 PO; +[UNRECOGNIZED DRUG - CODE] IV
[2020-01-13 13:08] VITALS: BP_SYST 134
[2020-01-13] MEDS ORDERED: ONDANSETRON HCL 4 MG/2 ML VIAL IVP ONE (13:30)
[2020-01-13] MEDS ORDERED: NACL 0.9% 1,000 ML IV ONE ×2 (13:30→15:00)
[2020-01-13 13:32] LABS: BASOPHILS % (AUTO) 0.6 % (0.0-2.0); EOSINOPHILS % (AUTO) 0.7 % (0.0-4.0); HEMOGLOBIN 13.6 g/dL (12.0-16.0); LYMPHOCYTES % (AUTO) 33.1 % (20.5-51.5); MEAN CORPUSCULAR HEMOGLOBIN 30 pg (27-31); MEAN CORPUSCULAR HGB CONC 34 % (32-36); MEAN CORPUSCULAR VOLUME 88 fL (79.0-98.0); MONOCYTES # (AUTO) 0.4 K/uL (0.0-1.0); MONOCYTES % (AUTO) 5.9 % (1.7-9.3); NEUTROPHILS # (AUTO) 3.6 K/uL (1.8-7.7); NEUTROPHILS % (AUTO) 59.7 % (40.0-70.0); PLATELET COUNT (AUTO) 202 K/uL (130-430); RED BLOOD CELL COUNT(AUTO) 4.57 MIL/uL (4.2-6.2); RED CELL DISTRIBUTION WIDTH 13.2 % (9.0-15.0)
[2020-01-13 13:41] LABS: CALCIUM 9.7 mg/dL (8.4-11.0); CREATININE 1.2 mg/dL (0.55-1.30)
[2020-01-13 13:47] LABS: ALBUMIN 3.7 g/dL (3.4-4.8); TOTAL BILIRUBIN 0.6 mg/dL (0.0-1.0)
[2020-01-13 14:38] LABS: BILIRUBIN,URINE NEGATIVE (NEGATIVE); BLOOD, URINE NEGATIVE (NEGATIVE); CLARITY/URINE CLEAR (CLEAR); COLOR,URINE YELLOW (YELLOW); GLUCOSE,URINE NEGATIVE (NEGATIVE); KETONES,URINE NEGATIVE (NEGATIVE); LEUKOCYTE ESTERASE ,URINE 2+ (NEGATIVE); NITRITE, URINE NEGATIVE (NEGATIVE); PROTEIN URINE NEGATIVE (NEGATIVE); UROBILINOGEN,URINE 0.2 (0.2-1.0)
[2020-01-13 14:41] LABS: BACTERIA,URINE FEW /HPF (None Seen); MUCUS,URINE None Seen /LPF (None Seen); RBC,URINE NONE SEEN /HPF (0-3); WBC,URINE 20-50 /HPF (0-3)
[2020-01-13] MEDS ORDERED: cefTRIAXone 1 GM IVPB PREMIX 50 ML IV ONE (15:00)
[2020-01-13 16:10] VITALS: BP_SYST 112
== END 2020-01-13 16:10 | disposition home or self-care (01) ==
LOC: SED 13:00
DX: E86.0 Dehydration (principal); N39.0 Urinary tract infection, site not specified; R53.1 Weakness; R19.7 Diarrhea, unspecified; J45.909 Unspecified asthma, uncomplicated; E03.9 Hypothyroidism, unspecified; K21.9 Gastro-esophageal reflux disease without esophagitis; Z88.1 Allergy status to other antibiotic agents; Z79.899 Other long term (current) drug therapy
CPT/HCPCS: 36415; 80053; 81000; 84484; 84520; 85025; 87040; 87086; 93005; 96361; 96365; 96375; 99284; J0696; J2405; J7030

== ENCOUNTER 2021-08-11 12:35 | Emergency (ER) | payer MEDICAID, SELFPAY ==
[~2021-08-11] VITALS: Ht 175.3 cm; Wt 99.8 kg
[~2021-08-11 12:35] MED LIST changes: -CARB150V9 IV; +FAMO20TA8 PO; -LEVO750T45 PO; -METR500T PO; -OMEP20CA11 PO; -ONDA4TAB5 PO; -OXYC-128 PO; -PROC-14 PO; -TRAS150V IV; -[UNRECOGNIZED DRUG - CODE] IV
[2021-08-11 12:45] VITALS: BP_SYST 137
[2021-08-11] MEDS ORDERED: KETOROLAC TROMETHAMINE 60 MG/2 ML VIAL IM ONE (13:30)
[2021-08-11] MEDS ORDERED: HYDR-3917 PO (14:10)
[2021-08-11] MEDS ORDERED: IBUP-1969 PO (14:10)
[2021-08-11 14:35] VITALS: BP_SYST 131
[2021-08-11] MEDS ORDERED: ASPIRIN 325 MG TABLET ONE (18:16)
== END 2021-08-11 14:35 | disposition home or self-care (01) ==
LOC: SED 12:35
DX: S52.502A Unspecified fracture of the lower end of left radius, initial encounter for closed fracture (principal); J45.909 Unspecified asthma, uncomplicated; K21.9 Gastro-esophageal reflux disease without esophagitis; Z88.1 Allergy status to other antibiotic agents; Z79.899 Other long term (current) drug therapy; W01.198A Fall on same level from slipping, tripping and stumbling with subsequent striking against other object, initial encounter; Y93.89 Activity, other specified; Y92.89 Other specified places as the place of occurrence of the external cause; Y99.8 Other external cause status
CPT/HCPCS: 29125; 73110; 96372; 99283; J1885